=== PATIENT | female | born 1930 ===

== ENCOUNTER 2017-10-23 07:04 | Day surgery (SDC) | payer MEDICARE ==
[2017-10-23 07:25] VITALS: BMI 22.3
[2017-10-23] MEDS ORDERED: Propofol 10 mg/ml Inj (20 ML) ONE (08:26)
[2017-10-23] MEDS ORDERED: Lidocaine Hydrochloride 5 ML INJ ONE (08:26)
[2017-10-23] MEDS ORDERED: Lactated Ringer's 500 ML IV SCH (08:30)
--- NOTE | 2017-10-23 08:31 | CP.SDSHP ---
Same Day Surgery H & P - History Proposed Procedure: COLONSCOPY Pre-Op Diagnosis: SEE NOTES - Previous Medical/Surgical History Cardiac: Hypertension Misc: Other Pain: 4.Moderate Pain - Allergies Allergies: Allergies No Known Allergies Allergy (Verified 08/31/17 21:07) - Physical Exam General Appearance: N Vital Signs: Vital Signs 10/23/17 07:30 Temperature 97 F L Pulse Rate 65 Respiratory 17 Rate Blood Pressure 147/59 L O2 Sat by Pulse 100 Oximetry Mental Status: Alert & Oriented x3 Neuro: WNL Heart: Other Lungs: WNL GI: Other - {Optional Preform as Required} Breast: WNL Abdomen: Other Rectal: Other Integument: WNL : WNL Ortho: WNL ENT: WNL - Impression Pt. Evaluated Today:Candidate for Anesthesia & Procedure: Yes - Date & Time Time: 08:30 Short Stay Discharge - Short Stay Discharge Admitting Diagnosis/Reason for Visit: DIARRHEA Disposition: HOME/ ROUTINE
[2017-10-23] MEDS ORDERED: Belladonna-Phenobarbital PO ONE (09:15)
[2017-10-23 09:23] VITALS: TEMP 97.3
[2017-10-23 10:12] VITALS: BP 125/57; PULSE 61; RESP 18; O2SAT 98
== END 2017-10-23 10:03 | disposition home or self-care (01) ==
LOC: C.ENDO 07:04
PROVIDERS: ATTEND Specialist
DX: R19.7 Diarrhea, unspecified (principal); R10.84 Generalized abdominal pain; K57.30 Diverticulosis of large intestine without perforation or abscess without bleeding; K64.4 Residual hemorrhoidal skin tags; K58.9 Irritable bowel syndrome, unspecified; I10 Essential (primary) hypertension
CPT/HCPCS: 45380; 88305; J2704; J7040; J7120